=== PATIENT | male | born 1965 | race Asian ===

== ENCOUNTER 2016-10-05 15:02 | Outpatient (CLI) | payer OTHER ==
--- NOTE | 2016-10-05 16:07 | Ultrasound Report ---
SCROTAL DUPLEX: 10/05/2016 CLINICAL INDICATION: Painful, palpable lump. TECHNIQUE: Real-time scanning was performed with medical billing representative static images obtained. The right testicle measures 4.2 x 3.0 x 2.0 cm, and the left testicle measures 3.6 x 2.9 x 2.0 cm. Both testicles demonstrate normal flow and echotexture. cysts are present bilaterally. Trace left hydrocele is present. No varicocele or hernia is identified. The palpable abnormality identified by the patient correlates with a 3.0 x 2.5 x 1.9 cm heterogeneous avascular nodule, with posterior acoustic enhancement, which appears separate from the scrotal contents , and closely applied to the dermis. This likely representing a sebaceous cyst. IMPRESSION: PALPABLE ABNORMALITY POSTERIOR TO THE SCROTUM LIKELY REPRESENTS A SEBACEOUS CYST. NO EVIDENCE OF AN INTRATESTICULAR MASS. JOB #: [id number] EXT JOB #: [id number] HALINA
== END 2016-10-05 15:03 | disposition home or self-care (01) ==
LOC: DI 15:02
PROVIDERS: ATTEND Family Medicine
DX: R10.2 Pelvic and perineal pain (principal); N50.89 Other specified disorders of the male genital organs
CPT/HCPCS: 76870; 93975

== ENCOUNTER 2016-11-23 11:04 | Outpatient (CLI) | payer OTHER ==
[2016-11-23 19:43] LABS: ALBUMIN/GLOBULIN RATIO 1.3 (1.0-2.2); BILIRUBIN,TOTAL 1.1 mg/dL (0.2-1.0); BUN - BLOOD UREA NITROGEN 20 mg/dL (6-20); CALCIUM 9.2 mg/dL (8.5-10.3); CARBON DIOXIDE - CO2 27 mmol/L (21-32); CHLORIDE 104 mmol/L (101-111); CHOL/HDL RATIO 4.3 (<5.0); CHOLESTEROL 113 mg/dL; GFR - MDRD 79 (>89); GLUCOSE 153 mg/dL (70-100); HDL CHOLESTEROL 26 mg/dL; LDL/HDL RATIO 1.9 (<3.6); SODIUM 138 mmol/L (135-145); TOTAL PROTEIN 7.2 g/dL (6.7-8.2); TRIGLYCERIDES 191 mg/dL; URIC ACID 8.4 mg/dL (2.6-7.2); VLDL CHOLESTEROL 38 mg/dL
[2016-11-23 21:28] LABS: HEMOGLOBIN A1C 1.02 g/dL
== END 2016-11-23 11:05 ==
LOC: LAB.WCP 11:04
PROVIDERS: ATTEND Family Medicine
DX: E11.65 Type 2 diabetes mellitus with hyperglycemia (principal); E11.22 Type 2 diabetes mellitus with diabetic chronic kidney disease; I12.9 Hypertensive chronic kidney disease with stage 1 through stage 4 chronic kidney disease, or unspecified chronic kidney disease; N18.9 Chronic kidney disease, unspecified; M10.9 Gout, unspecified
CPT/HCPCS: 36415; 80053; 80061; 83036; 84550

== ENCOUNTER 2017-02-05 14:17 | Emergency (ER) | payer OTHER ==
[2017-02-05 14:21] VITALS: BP 152/92
--- NOTE | 2017-02-05 15:29 | XRAY Report ---
EXAM: RIGHT ANKLE RADIOGRAPHY EXAM DATE: 02/05/2017 03:12 PM. CLINICAL HISTORY: Right ankle swelling . COMPARISON: None. TECHNIQUE: 3 views. FINDINGS: Bones: No fracture or focal bony lesion. There are calcaneal enthesophytes. Joints: No evidence of dislocation. There are degenerative changes at the posterior subtalar facet. Soft Tissues: There is medial soft tissue swelling. IMPRESSION: 1. No fracture or dislocation. 2. There is medial soft tissue swelling. 3. There are calcaneal enthesophytes. 4. There are degenerative changes at the posterior subtalar facet. [facility] Referring Provider Line: [phone] SITE ID: [id number]
--- NOTE | 2017-02-05 16:05 | ED Physician Documentation ---
PD HPI LOWER EXT INJURY - Stated complaint Stated Complaint: R ANKLE PX - Chief complaint Chief Complaint: Ext Problem - History obtained from History obtained from: Patient - History of Present Illness PD HPI LOW EXT INJURY LOCATION: Right, Ankle, Foot Type of injury: No: Fall, Twist Timing - onset: How many weeks ago (1) Timing - duration: Weeks (1) Timing - details: Gradual onset, Still present Improved by: Rest Worsened by: Palpating, Other (walking and inversion movement) Associated symptoms: Swelling. No: Weakness, Numbness, Discolored Similar symptoms before: Has not had sx before (has had gout at base great toe, but not in foot. Has had ankle sprains in the past.) Review of Systems Constitutional: denies: Fever Skin: denies: Rash, Lesions Neurologic: denies: Focal weakness, Numbness PD PAST MEDICAL HISTORY - Past Medical History Cardiovascular: None Musculoskeletal: Gout - Present Medications Home Medications: Ambulatory Orders Medication Instructions Recorded Confirmed Allopurinol 100 mg PO DAILY 02/05/17 02/05/17 Amlodipine Besylate/Benazepril 10 mg PO DAILY 02/05/17 02/05/17 [Lotrel 10-20 mg Capsule] Aspirin Chewable [[place] 81 mg PO DAILY PM 02/05/17 02/05/17 Aspirin] Atenolol 25 mg pe PO DAILY PM 02/05/17 02/05/17 Colchicine 0.6 mg PO TID #10 tablet 02/05/17 Dexamethasone [Decadron] 4 mg PO DAILY #5 tablet 02/05/17 Dulaglutide [Trulicity] 0.75 mg SQ ONCE 02/05/17 02/05/17 HYDROcod/ACETAM 5/325 [[place] 5/325] 1 tab PO Q6H PRN #15 tablet 02/05/17 Insulin Degludec [Tresiba 80 unit SQ DAILY PM 02/05/17 02/05/17 Flextouch U-100] Olmesartan/Hydrochlorothiazide 20 mg PO DAILY 02/05/17 02/05/17 [Benicar Hct 20-12.5 mg Tablet] metFORMIN [Glucophage] 500 mg PO TID 02/05/17 02/05/17 - Allergies Allergies/Adverse Reactions: Allergies Allergy/AdvReac Type Severity Reaction Status Date / Time No Known Drug Allergies Allergy Verified 12/29/17 14:21 PD ED PE NORMAL - Vitals Vital signs reviewed: Yes - General General: Alert and oriented X 3, Well developed/nourished - Back Back: No CVA TTP, No spinal TTP - Derm Derm: Warm and dry, No rash, Other (some swelling with warmth but no redness dorsolateral proximal foot and tenderness at that area. ) Results - Vitals Vitals: Oxygen O2 Source Room air PD MEDICAL DECISION MAKING - ED course Complexity details: reviewed results, considered differential (could be ankle tendonitis or consider gout.), d/w patient Departure - Departure Disposition: 01 Home, Self Care Clinical Impression: Tendonitis of ankle, right Ankle pain Qualifiers: Chronicity: acute Laterality: right Qualified Code(s): M25.571 - Pain in right ankle and joints of right foot Gout Qualifiers: Gout site: ankle Gout etiology: idiopathic Chronicity: acute Laterality: right Qualified Code(s): M10.071 - Idiopathic gout, right ankle and foot Condition: Stable Record reviewed to determine appropriate education?: Yes Instructions: ED Arthritis Gout, ED Sprain Ankle Follow-Up: Zachery Sebastian MD [Primary Care Provider] - Prescriptions: Colchicine 0.6 mg PO TID #10 tablet Dexamethasone [Decadron] 4 mg PO DAILY #5 tablet HYDROcod/ACETAM 5/325 [[place] 5/325] 1 tab PO Q6H PRN #15 tablet PRN Reason: Pain Comments: It does not appear to be infection. This likely is a gout flareup with the location of it. Use colchicine 2-3 times a day for the next few days and Decadron steroid anti-inflammatory for a few days. If you notice her blood sugars going excessively high, then stop the steroid. Continue Aleve (naproxen ) 2 tablets 2-3 times a day as well. Add hydrocodone if needed for pain. Alternatively this may be some tendinitis in the foot and ankle. The treatment would be similar with the anti-inflammatory and pain medicine but add an ankle brace to help support it. I would treated as both and see how you do over the next several days. Follow-up with your primary care if not improved over the next several days. Discharge Date/Time: 02/05/17 16:41
[2017-02-05] MEDS ORDERED: DEXAMETHASONE 10 MG/ML VIAL PO STA (16:31)
== END 2017-02-05 16:41 | disposition home or self-care (01) ==
LOC: ED 14:17
DX: M77.9 Enthesopathy, unspecified (principal); M25.571 Pain in right ankle and joints of right foot; M10.071 Idiopathic gout, right ankle and foot; Z79.82 Long term (current) use of aspirin
CPT/HCPCS: 99283

== ENCOUNTER 2017-09-15 08:00 | Outpatient (CLI) | payer OTHER ==
[2017-09-15 14:35] LABS: HB2 TOTAL 14.3 g/dL; HEMOGLOBIN A1C 0.92 g/dL
== END 2017-09-15 08:01 | disposition home or self-care (01) ==
LOC: LAB.WCP 08:00
PROVIDERS: ATTEND Family Medicine
DX: E11.65 Type 2 diabetes mellitus with hyperglycemia (principal)
CPT/HCPCS: 36415; 83036

== ENCOUNTER 2022-03-23 10:06 | Outpatient (CLI) | payer BC ==
[2022-03-23 13:45] LABS: CREATININE,URINE 163.1 mg/dL; MICROALBUM/CREATININE RATIO,UR 318.2 ug/mg (<30.0); MICROALBUMIN,URINE 51.9 mg/dL (0-300.0); PROTEIN/CREATININE RATIO,URINE 0.6 (<=0.2)
[2022-03-23 13:55] LABS: ALBUMIN 4.1 g/dL (3.2-5.5); CALCIUM 9.3 mg/dL (8.5-10.3); CREATININE 1.1 mg/dL (0.6-1.2); PHOSPHORUS 3.6 mg/dL (2.5-4.6)
== END 2022-03-23 10:07 | disposition home or self-care (01) ==
LOC: LAB.N 10:06
PROVIDERS: ATTEND Internal Medicine Nephrology
DX: I12.9 Hypertensive chronic kidney disease with stage 1 through stage 4 chronic kidney disease, or unspecified chronic kidney disease (principal); E11.22 Type 2 diabetes mellitus with diabetic chronic kidney disease; N18.2 Chronic kidney disease, stage 2 (mild); Z79.4 Long term (current) use of insulin
CPT/HCPCS: 36415; 80069; 82043; 82570; 82728; 83540; 84156; 84466

== ENCOUNTER 2023-07-09 11:03 | Outpatient (CLI) | payer BC ==
[2023-07-09 18:29] LABS: ALBUMIN 4.5 g/dL (3.2-5.5)
[2023-07-09 18:35] LABS: CALCIUM 9.5 mg/dL (8.5-10.3); CREATININE 2.6 mg/dL (0.6-1.3)
[2023-07-09 18:54] LABS: CREATININE,URINE 80.6 mg/dL; PROTEIN/CREATININE RATIO,URINE 0.8 (<=0.2)
== END 2023-07-09 11:04 | disposition home or self-care (01) ==
LOC: LAB.N 11:03
PROVIDERS: ATTEND Internal Medicine Nephrology
DX: N18.32 Chronic kidney disease, stage 3b (principal)
CPT/HCPCS: 36415; 80048; 82040; 82570; 84156